=== PATIENT | female | born 1945 | race Caucasian/White ===

== ENCOUNTER 2017-02-10 06:57 | Day surgery (SDC) | payer OTHER ==
[2017-02-05 15:30] VITALS: BMI 20.7
[2017-02-10] MEDS ORDERED: EPINEPHrine/PF 1 MG/1 ML (1:1,000) AMPULE ONE (07:26)
[2017-02-10 07:41] VITALS: TEMP 98
[2017-02-10] MEDS: GENTAMICIN SULFATE 0.3% OPHTHALMIC (EYE DROPS) 5ML BOTTLE ONE ×5 (07:50→08:10)
[2017-02-10] MEDS: CYCLOPENTOLATE HCL 1% OPHTH SOLN 2 ML BOTTLE ONE ×5 (07:50→08:10)
[2017-02-10] MEDS: TROPICAMIDE 1% OPHTH SOLN 15 ML BOTTLE ONE ×5 (07:50→08:10)
[2017-02-10] MEDS: KETOROLAC TROMETHAMINE 0.5% 5 ML BOTTLE OPTHALMIC ONE ×5 (07:50→08:10)
[2017-02-10] MEDS: PHENYLEPHRINE 2.5% OPHTH SOLN 15 ML BOTTLE ONE ×5 (07:50→08:10)
[2017-02-10] MEDS ORDERED: POVIDONE-IODINE 5% OPHTHALMIC PREP 30 ML SOLUTION ONE (09:11)
[2017-02-10] MEDS ORDERED: BSS (NA/CA/MG/K) BALANCED SALT SOLUTION OPHTH SOLN 15 ML BOTTLE ONE (09:11)
[2017-02-10] MEDS ORDERED: BUPIVACAINE HCL/PF 0.5% (5MG/ML) 10 ML VIAL ONE (09:11)
[2017-02-10] MEDS ORDERED: LIDOCAINE HCL/PF 2% SDV 5ML VIAL ONE (09:11)
[2017-02-10] MEDS ORDERED: CARBACHOL 0.01% INTRA-OCULAR 1.5 ML VIAL ONE (09:12)
[2017-02-10] MEDS ORDERED: ACETYLCHOLINE 1:100 INTRA-OCUL 20 MG/2 ML KIT ONE (09:12)
[2017-02-10] MEDS ORDERED: ACETAMINOPHEN 325 MG TABLET (FP) PO PRN (09:14)
[2017-02-10] MEDS ORDERED: KETOROLAC TROMETHAMINE 30 MG/1 ML VIAL ONE (09:41)
[2017-02-10] MEDS ORDERED: PROPOFOL 20 ML ONE (09:41)
[2017-02-10 11:52] VITALS: BP 133/83; PULSE 77
--- NOTE | 2017-02-10 12:15 | OP ---
DATE OF OPERATION: 02/10/2017 TYPE OF PROCEDURES PLANNED: Extracapsular cataract extraction, phacoemulsification, insertion of posterior chamber lens implant, right eye. SURGEON: Ana Maria Rodriguez MD [employer]M EXAMINER SURGEON: Ana Maria Rodriguez MD COMPLICATIONS: None. PREOPERATIVE DIAGNOSIS: Cataract, right eye. POSTOPERATIVE DIAGNOSIS: Cataract, right eye. FINDINGS AND PROCEDURE: After a successful peribulbar anesthesia was given to the right eye, the patient was prepped and draped in the usual manner to expose the right eye. A lid speculum was inserted and Tegaderm strips were placed on the lashes. Then, the microscope was brought into position over the eye. A superior fornix-based flap was then fashioned for 12 mm using Sandy scissors and 0.12 forceps and hemostasis achieved with Wet-field cautery. A limbal groove was fashioned for 3 mm, dissecting anteriorly into clear cornea. A 3-mm blade was used to enter the anterior chamber. Under Viscoat 360 degrees, an anterior capsulotomy was performed removed from the eye. Phacoemulsification of the entire nucleus was then done approximately 1-1/2-minutes' time, followed by irrigation and aspiration of all cortical material, leaving an intact posterior capsule and a red reflex present. Provisc was injected in the posterior chamber to deepen the posterior capsule and at this point the posterior chamber was deepened with Provisc and the posterior capsule was intact and a red reflex present. The implant was inspected carefully using the microscope. Found to be free of defects or being flawed, it was folded and placed in the Provisc-filled cartridge. The cartridge was placed in the injector and then the implant was injected into the eye such that the inferior haptic was in the inferior capsular bag and the superior haptic was in the superior capsular bag and maintained in the horizontal position with a Sinskey hook. Provisc was then aspirated out and was replaced with Miochol, Miostat and BSS. The wound was closed with a single interrupted 2-0 Ethibond sutures superiorly, tested for leakage and none was found. The conjunctival tenon flap was reapproximated. At this point, the implant was fixated in the capsular bag, centrally located with a round pupil, intact posterior capsule and a red reflex present. Topical Betoptic Maxitrol ophthalmic as mentioned was placed, as was bacitracin ophthalmic ointment. The speculum and Tegaderm strips were removed from the lids. The lids were closed and a patch and shield placed on the eye. The patient was then discharged from the operating room to the recovery area in good condition, having tolerated the procedure well. ANA MARIA RODRIGUEZ M.D. [id number]
== END 2017-02-10 11:15 | disposition home or self-care (01) ==
LOC: FASU 06:57
PROVIDERS: ATTEND Ophthalmology
PROC: 08RJ3JZ Replacement of Right Lens with Synthetic Substitute, Percutaneous Approach (ICD-10-PCS; principal; 2017-02-10 09:27)
DX: H26.9 Unspecified cataract (principal)

== ENCOUNTER 2017-03-31 09:18 | Day surgery (SDC) | payer OTHER ==
[2017-03-26 09:43] VITALS: BMI 20.7
[2017-03-31] MEDS ORDERED: ACETAMINOPHEN 325 MG TABLET (FP) PO PRN (09:19)
[2017-03-31] MEDS ORDERED: BUPIVACAINE HCL/PF 0.5% (5MG/ML) 10 ML VIAL ONE (09:37)
[2017-03-31] MEDS ORDERED: ACETYLCHOLINE 1:100 INTRA-OCUL 20 MG/2 ML KIT ONE (09:37)
[2017-03-31] MEDS ORDERED: LIDOCAINE HCL/PF 2% SDV 5ML VIAL ONE (09:37)
[2017-03-31] MEDS ORDERED: PROPOFOL 20 ML ONE (09:41)
[2017-03-31] MEDS ORDERED: MIDAZOLAM HCL 2 MG/2 ML SINGLE DOSE VIAL ONE (09:48)
[2017-03-31] MEDS: TROPICAMIDE 1% OPHTH SOLN 15 ML BOTTLE ONE ×5 (09:55→10:15)
[2017-03-31] MEDS: CYCLOPENTOLATE HCL 1% OPHTH SOLN 2 ML BOTTLE ONE ×5 (09:55→10:15)
[2017-03-31] MEDS: KETOROLAC TROMETHAMINE 0.5% 5 ML BOTTLE OPTHALMIC ONE ×5 (09:55→10:15)
[2017-03-31] MEDS: PHENYLEPHRINE 2.5% OPHTH SOLN 15 ML BOTTLE ONE ×5 (09:55→10:15)
[2017-03-31] MEDS: GENTAMICIN SULFATE 0.3% OPHTHALMIC (EYE DROPS) 5ML BOTTLE ONE ×5 (09:55→10:15)
[2017-03-31] MEDS ORDERED: POVIDONE-IODINE 5% OPHTHALMIC PREP 30 ML SOLUTION ONE (10:46)
[2017-03-31] MEDS ORDERED: ONDANSETRON 4 MG/2 ML VIAL ONE (11:03)
[2017-03-31] MEDS ORDERED: DEXAMETHASONE SOD PHOSPHATE 4 MG/1 ML VIAL ONE (11:03)
[2017-03-31 12:05] VITALS: TEMP 98.2
[2017-03-31] MEDS ORDERED: ONDANSETRON 4 MG/2 ML VIAL IVPUSH PRN (12:24)
[2017-03-31] MEDS ORDERED: LACTATED RINGERS SOLUTION 1,000 ML IV SCH (12:30)
[2017-03-31 12:51] VITALS: BP 140/86; PULSE 90
--- NOTE | 2017-04-01 09:36 | OP ---
DATE OF OPERATION: 03/31/2017 PREOPERATIVE DIAGNOSIS: Cataract, left eye. POSTOPERATIVE DIAGNOSIS: Cataract, left eye. PROCEDURE: Cataract extraction via phacoemulsification with insertion of posterior chamber lens implant, left eye. ATTENDING SURGEON: Ana Maria Rodriguez M.D. ENVIRONMENTAL HEALTH TECHNOLOGIST: Ana Maria Rodriguez M.D. ANESTHESIA: Regional sedation. BLOOD LOSS: Less than 1 mL. COMPLICATIONS: None. SPECIMENS: None. PROCEDURE: The patient was identified in the holding area. After all risks, benefits, and alternatives were explained to the patient, informed consent was obtained. The left eye was marked with a marking pen. The patient then entered the operating room on an eye stretcher. After formal timeout was performed, a 3 mL injection of equal parts 2% lidocaine with epinephrine and 0.5% Marcaine was given around the left eye. The left eye was then prepped and draped in the usual sterile fashion. Eyelid speculum was placed beneath the eyelids of the left eye. An infratemporal paracentesis incision was created using 15 degree blade. Viscoelastic was injected into the anterior chamber, a 2.4-mm keratome blade was then used to make an supratemporal incision. A 360-degree continuous curvilinear capsulorrhexis was then created using bent cystotome and Utrata forceps. Hydrodissection was performed using balanced saline solution on the cannula. Phacoemulsification was then introduced, disassembled and removed the nucleus in its entirety. Irrigation/aspiration was then used to remove any remaining cortical material from the eye. The capsular bag was then refilled using viscoelastic. An Richi model SN60WF with a power of 24.0 diopters, serial number [id number] was inspected and found to be defect free and injected into the capsular bag. Irrigation/aspiration was then used to remove any remaining viscoelastic from the eye. The anterior chamber was then reformed using balanced saline solution. Intracameral injections of Miochol and Miostat were then administered to the left eye, and the pupil came down and was round. All wounds were hydrated with balanced saline solution. Of note, the supratemporal wound was noted not to close using balanced saline solution, so interrupted 10-0 nylon suture was then placed and the knot buried. Upon inspection, all wounds appeared to be dry, and anterior chamber was deep. The lens was perfectly centered, and there was a red reflex present, and the eye had an adequate pressure. Topical antibiotic eyedrops and ointment were then administered to the left eye. The eyelid speculum was then removed from the left eye. The left eye was then patched and shielded. The patient tolerated the procedure well and left the operating room in stable condition to follow up in the eye clinic the next morning at 9 o'clock. ANA MARIA RODRIGUEZ M.D. [id number]
== END 2017-03-31 12:35 | disposition home or self-care (01) ==
LOC: FASU 09:18
PROVIDERS: ATTEND Ophthalmology
PROC: 08RK3JZ Replacement of Left Lens with Synthetic Substitute, Percutaneous Approach (ICD-10-PCS; principal; 2017-03-31 11:00)
DX: H26.9 Unspecified cataract (principal)